=== PATIENT | female | born 1955 | race Two or more races ===

== ENCOUNTER → 2016-05-31 | Outpatient (CLI) | payer MEDICAID | END | disposition home or self-care (01) | LOC: CFH 14:00 | PROVIDERS: ATTEND Nurse Practitioner Family | DX: R92.2 Inconclusive mammogram (principal); M25.462 Effusion, left knee | CPT/HCPCS: 76641; G0204 ==

== ENCOUNTER → 2016-06-18 | Outpatient (CLI) | payer MEDICAID | END | disposition home or self-care (01) | LOC: CFH 14:19 | PROVIDERS: ATTEND Nurse Practitioner Family | DX: S83.242A Other tear of medial meniscus, current injury, left knee, initial encounter (principal); S83.282A Other tear of lateral meniscus, current injury, left knee, initial encounter; M17.12 Unilateral primary osteoarthritis, left knee; M71.22 Synovial cyst of popliteal space [Baker], left knee; X58.XXXA Exposure to other specified factors, initial encounter; Y93.89 Activity, other specified; Y92.89 Other specified places as the place of occurrence of the external cause; Y99.8 Other external cause status ==

== ENCOUNTER 2017-03-02 10:35 | Emergency (ER) | payer MEDICAID ==
[~2017-03-02] VITALS: Ht 162.6 cm; Wt 95.3 kg
[2017-03-02 10:40] VITALS: BP 170/106
[2017-03-02] MEDS ORDERED: LINA1TAB5 PO (11:01)
[2017-03-02] MEDS ORDERED: LOSA100T6 PO (11:01)
[2017-03-02] MEDS ORDERED: PANT40TA5 PO (11:01)
== END 2017-03-02 11:34 | disposition home or self-care (01) ==
LOC: ED 11:25
DX: J18.1 Lobar pneumonia, unspecified organism (principal); I10 Essential (primary) hypertension; E11.9 Type 2 diabetes mellitus without complications
CPT/HCPCS: 71020

== ENCOUNTER → 2017-06-20 | Outpatient (CLI) | payer MEDICAID ==
[~2017-06-20] MED LIST: LINA1TAB5 PO; LOSA100T6 PO; PANT40TA5 PO
== END | disposition home or self-care (01) ==
LOC: CFH 12:50
PROVIDERS: ATTEND Nurse Practitioner Family
DX: M25.462 Effusion, left knee (principal); M71.22 Synovial cyst of popliteal space [Baker], left knee; M65.9 Synovitis and tenosynovitis, unspecified

== ENCOUNTER 2017-07-07 09:08 | Emergency (ER) | payer MEDICAID ==
[~2017-07-07] VITALS: Ht 162.6 cm; Wt 91.0 kg
[2017-07-07 09:09] VITALS: BP 146/84
== END 2017-07-07 10:27 | disposition home or self-care (01) ==
LOC: ED 10:00
DX: J02.8 Acute pharyngitis due to other specified organisms (principal); B97.89 Other viral agents as the cause of diseases classified elsewhere; I10 Essential (primary) hypertension; E11.9 Type 2 diabetes mellitus without complications; Z77.22 Contact with and (suspected) exposure to environmental tobacco smoke (acute) (chronic)
CPT/HCPCS: 71046; 99284

== ENCOUNTER 2019-04-09 11:52 | Emergency (ER) | payer MEDICAID ==
[~2019-04-09] VITALS: Ht 162.6 cm; Wt 92.7 kg
[~2019-04-09 11:52] MED LIST changes: +LOSA100T14 PO; -LOSA100T6 PO
[2019-04-09 11:57] VITALS: BP 136/89
--- NOTE | 2019-04-09 12:15 | NUR ---
Cough x 3 days, NAD
--- NOTE | 2019-04-09 12:35 | NUR ---
CXR results pending.
== END 2019-04-09 13:17 | disposition home or self-care (01) ==
LOC: ED 13:05
DX: J06.9 Acute upper respiratory infection, unspecified (principal); I10 Essential (primary) hypertension; E11.9 Type 2 diabetes mellitus without complications; I25.2 Old myocardial infarction; Z90.89 Acquired absence of other organs; F17.200 Nicotine dependence, unspecified, uncomplicated
CPT/HCPCS: 71046; 99283